=== PATIENT | female | born 1955 | race Caucasian/White ===

== ENCOUNTER 2017-07-12 10:22 | Emergency (ER) | payer BC | END 2017-07-12 11:30 | disposition home or self-care (01) | LOC: E/R 11:30 | DX: H10.023 Other mucopurulent conjunctivitis, bilateral (principal) | CPT/HCPCS: 99283 ==

== ENCOUNTER 2017-10-19 08:55 | Emergency (ER) | payer BC ==
[2017-10-19] MEDS: ONDANSETRON (ODT) 4 MG TAB ODT (09:45)
[2017-10-19] MEDS: morphine 4 MG/ML VIAL IV (09:45)
[2017-10-19 10:13] LABS: ADD MAN DIFF? NO
[2017-10-19 10:19] LABS: ADD UMIC YES; UR ASCORBIC ACID NEGATIVE (NEGATIVE); UR BILIRUBIN (Dip) NEGATIVE (NEGATIVE); UR BLOOD (Dip) NEGATIVE (NEGATIVE); UR CLARITY CLEAR (CLEAR); UR COLOR YELLOW (YELLOW); UR GLUCOSE (Dip) NEGATIVE (NEGATIVE); UR KETONES (Dip) NEGATIVE (NEGATIVE); UR LEUKOCYTE ESTERASE (Dip) 1+ Leu/ul (NEGATIVE); UR NITRITE (Dip) NEGATIVE (NEGATIVE); UR RBC 1 /HPF (0-5); UR TOTAL PROTEIN (Dip) NEGATIVE (NEGATIVE); UR UROBILINOGEN (Dip) NEGATIVE (NEGATIVE); UR WBC 0 /HPF (0-5)
[2017-10-19 10:34] LABS: ALANINE AMINOTRANSFERASE 37 IU/L (13-69); ALBUMIN 3.7 g/dl (3.3-4.9); ALBUMIN/GLOBULIN RATIO 1.08; ALKALINE PHOSPHATASE 71 IU/L (42-121); ANION GAP 12 (8-16); ASPARTATE AMINO TRANSFERASE 24 IU/L (15-46); BILIRUBIN,INDIRECT 0.2 mg/dl (0-1.1); BILIRUBIN,TOTAL 0.2 mg/dl (0.2-1.3); BLOOD UREA NITROGEN 18 mg/dl (7-20); CARBON DIOXIDE 27 mmol/L (21-31); CHLORIDE 110 mmol/L (97-110); CREATININE 0.62 mg/dl (0.44-1.00); GLUCOSE 101 mg/dl (70-220); LIPASE 108 U/L (23-300); POTASSIUM 4.6 mmol/L (3.5-5.1); SODIUM 144 mmol/L (135-144); TOTAL PROTEIN 7.1 g/dl (6.1-8.1)
[2017-10-19 10:51] LABS: TROPONIN-I < 0.012 ng/ml (0.000-0.120)
[2017-10-19 11:25] LABS: WHITE BLOOD COUNT 9.1 10^3/ul (4.8-10.8)
[2017-10-19 11:25] LABS: BASOPHILS % 0.3 % (0.0-2.0); EOSINOPHILS # 0.2 10^3/ul (0.0-0.5); EOSINOPHILS % 2.6 % (0.0-7.0); HEMATOCRIT 36.5 % (37.0-47.0); LYMPHOCYTES # 2.2 10^3/ul (0.8-2.9); LYMPHOCYTES % 24.4 % (15.0-51.0); MEAN CORPUSCULAR HEMOGLOBIN 29.1 pg (29.0-33.0); MEAN CORPUSCULAR HGB CONC 32.9 g/dl (32.0-37.0); MEAN CORPUSCULAR VOLUME 88.4 fl (82.0-101.0); MEAN PLATELET VOLUME 10.6 fl (7.4-10.4); MONOCYTE # 0.7 10^3/ul (0.3-0.9); MONOCYTES % 7.4 % (0.0-11.0); NEUTROPHIL # 5.9 10^3/ul (1.6-7.5); NEUTROPHILS % 65.1 % (39.0-77.0); PLATELET COUNT 255 10^3/UL (140-415); RED BLOOD COUNT 4.13 10^6/ul (4.20-5.40); RED CELL DISTRIBUTION WIDTH 12.9 % (11.5-14.5)
== END 2017-10-19 13:08 | disposition home or self-care (01) ==
LOC: E/R 08:55
DX: R10.32 Left lower quadrant pain (principal); I10 Essential (primary) hypertension; E11.9 Type 2 diabetes mellitus without complications; Z79.82 Long term (current) use of aspirin; Z79.84 Long term (current) use of oral hypoglycemic drugs
CPT/HCPCS: 36415; 74176; 80053; 81001; 83690; 84484; 85025; 93005; 96374; 99285-25

== ENCOUNTER 2018-06-06 11:44 | Inpatient (IN) | payer OTHER, BC ==
[2018-06-06 12:21] LABS: URINE BLOOD (Dip) POC Negative (NEGATIVE); URINE GLUCOSE (Dip) POC Negative (NEGATIVE); URINE KETONES (Dip) POC Negative (NEGATIVE); URINE LEUKOCYTE EST (Dip) POC Negative (NEGATIVE); URINE NITRITE (Dip) POC Negative (NEGATIVE); URINE TOTAL PROTEIN POC Negative (NEGATIVE)
[2018-06-06 12:21] LABS: URINE PH (Dip) POC 6.5 (5.0-8.5)
[2018-06-06 12:24] LABS: ADD MAN DIFF? NO
[2018-06-06 12:30] LABS: BASOPHILS % 0.4 % (0.0-2.0); EOSINOPHILS # 0.2 10^3/ul (0.0-0.5); EOSINOPHILS % 2.7 % (0.0-7.0); HEMATOCRIT 36.8 % (37.0-47.0); HEMOGLOBIN 12.2 g/dl (12.0-16.0); LYMPHOCYTES # 1.8 10^3/ul (0.8-2.9); LYMPHOCYTES % 25.6 % (15.0-51.0); MEAN CORPUSCULAR HEMOGLOBIN 28.6 pg (29.0-33.0); MEAN CORPUSCULAR HGB CONC 33.2 g/dl (32.0-37.0); MEAN CORPUSCULAR VOLUME 86.4 fl (82.0-101.0); MEAN PLATELET VOLUME 10.6 fl (7.4-10.4); MONOCYTE # 0.7 10^3/ul (0.3-0.9); MONOCYTES % 10.2 % (0.0-11.0); NEUTROPHIL # 4.2 10^3/ul (1.6-7.5); PLATELET COUNT 251 10^3/UL (140-415); RED BLOOD COUNT 4.26 10^6/ul (4.20-5.40); RED CELL DISTRIBUTION WIDTH 13.3 % (11.5-14.5)
[2018-06-06 12:30] LABS: WHITE BLOOD COUNT 6.9 10^3/ul (4.8-10.8)
[2018-06-06 12:50] LABS: ALANINE AMINOTRANSFERASE 735 IU/L (13-69); ALBUMIN 4.1 g/dl (3.3-4.9); ALKALINE PHOSPHATASE 99 IU/L (42-121); ANION GAP 7 (5-13); ASPARTATE AMINO TRANSFERASE 613 IU/L (15-46); BILIRUBIN,INDIRECT 0.4 mg/dl (0-1.1); BILIRUBIN,TOTAL 0.4 mg/dl (0.2-1.3); BLOOD UREA NITROGEN 14 mg/dl (7-20); CALCIUM 9.5 mg/dl (8.4-10.2); CARBON DIOXIDE 25 mmol/L (21-31); CHLORIDE 110 mmol/L (97-110); CREATININE 0.59 mg/dl (0.44-1.00); Estimated GFR > 60 mL/min (>60); GLUCOSE 94 mg/dl (70-220); POTASSIUM 4.7 mmol/L (3.5-5.1); SODIUM 142 mmol/L (135-144); TOTAL PROTEIN 7.5 g/dl (6.1-8.1)
[2018-06-06 13:01] LABS: TROPONIN-I < 0.012 ng/ml (0.000-0.120)
[2018-06-06 13:10] LABS: LIPASE 3013 U/L (23-300)
[2018-06-06] MEDS ORDERED: ONDANSETRON 4 MG INJ IV (15:00)
[2018-06-06] MEDS ORDERED: NACL 0.9% 3 ML SYG IV (15:00)
[2018-06-06] MEDS: DEXTROSE 5%-0.45% NACL 1,000 ML IV (16:53)
[2018-06-06] MEDS: HEPARIN 5,000 UNIT/1 ML VIAL SC ×2 (17:00→22:20)
[2018-06-06] MEDS: INSULIN ASPART [NOVOLOG] 3 ML PEN SC ×2 (17:42→21:00)
[2018-06-06] MEDS ORDERED: GLUCOSE GEL 15 GRAM TUBE BUCCAL (18:00)
[2018-06-06] MEDS ORDERED: GLUCAGON 1 MG INJ IM (18:00)
[2018-06-06] MEDS ORDERED: GLUCOSE GEL 15 GRAM TUBE PO ×2 (18:00)
[2018-06-06] MEDS ORDERED: DEXTROSE 50% 50 ML SYRINGE IV ×2 (18:00)
[2018-06-06 18:33] LABS: CREATINE KINASE 119 IU/L (23-200)
[2018-06-06 18:45] LABS: CK INDEX 2.4; CK-MB 2.88 ng/ml (0.0-2.4); TROPONIN-I < 0.012 ng/ml (0.000-0.120)
[2018-06-06] MEDS: HYDROmorphONE 0.5 MG/0.5 ML SYG IV (21:24)
[2018-06-06] MEDS: FAMOTIDINE 20 MG INJ IV (21:24)
[2018-06-07 01:05] LABS: HAAIG REFLEX REFLEX FILED
[2018-06-07 01:32] LABS: CREATINE KINASE 106 IU/L (23-200)
[2018-06-07 01:44] LABS: CK INDEX 2.3; CK-MB 2.47 ng/ml (0.0-2.4); TROPONIN-I < 0.012 ng/ml (0.000-0.120)
[2018-06-07] MEDS: ACCU-CHEK XX (02:00)
[2018-06-07 02:04] LABS: HEPATITIS B SURFACE ANTIGEN NEGATIVE (NEGATIVE)
[2018-06-07 02:22] LABS: HEPATITIS B CORE ANTIBODY REACTIVE (NEGATIVE); HEPATITIS C VIRAL ANTIBODY NEGATIVE (NEGATIVE)
[2018-06-07 05:14] LABS: ADD MAN DIFF? NO
[2018-06-07 05:17] LABS: BASOPHILS % 0.6 % (0.0-2.0); EOSINOPHILS # 0.3 10^3/ul (0.0-0.5); EOSINOPHILS % 6.5 % (0.0-7.0); HEMATOCRIT 35.9 % (37.0-47.0); HEMOGLOBIN 11.5 g/dl (12.0-16.0); LYMPHOCYTES # 1.9 10^3/ul (0.8-2.9); LYMPHOCYTES % 37.6 % (15.0-51.0); MEAN CORPUSCULAR HEMOGLOBIN 28.5 pg (29.0-33.0); MEAN CORPUSCULAR VOLUME 88.9 fl (82.0-101.0); MONOCYTE # 0.5 10^3/ul (0.3-0.9); MONOCYTES % 9.4 % (0.0-11.0); NEUTROPHIL # 2.3 10^3/ul (1.6-7.5); NEUTROPHILS % 45.7 % (39.0-77.0); PLATELET COUNT 230 10^3/UL (140-415); RED BLOOD COUNT 4.04 10^6/ul (4.20-5.40); RED CELL DISTRIBUTION WIDTH 13.5 % (11.5-14.5)
[2018-06-07 05:17] LABS: WHITE BLOOD COUNT 5.1 10^3/ul (4.8-10.8)
[2018-06-07 05:30] LABS: HEMOGLOBIN A1C 5.7 % (0-5.9)
[2018-06-07 05:52] LABS: ALANINE AMINOTRANSFERASE 473 IU/L (13-69); ALBUMIN 3.6 g/dl (3.3-4.9); ALBUMIN/GLOBULIN RATIO 1.09; ALKALINE PHOSPHATASE 83 IU/L (42-121); ANION GAP 5 (5-13); ASPARTATE AMINO TRANSFERASE 235 IU/L (15-46); BILIRUBIN,INDIRECT 0.4 mg/dl (0-1.1); BILIRUBIN,TOTAL 0.4 mg/dl (0.2-1.3); BLOOD UREA NITROGEN 12 mg/dl (7-20); CALCIUM 8.9 mg/dl (8.4-10.2); CARBON DIOXIDE 27 mmol/L (21-31); CHLORIDE 108 mmol/L (97-110); CREATININE 0.59 mg/dl (0.44-1.00); Estimated GFR > 60 mL/min (>60); GLUCOSE 102 mg/dl (70-220); SODIUM 140 mmol/L (135-144); TOTAL PROTEIN 6.9 g/dl (6.1-8.1)
[2018-06-07] MEDS: DEXTROSE 5%-0.45% NACL 1,000 ML IV ×2 (05:54→10:57)
[2018-06-07] MEDS: HEPARIN 5,000 UNIT/1 ML VIAL SC ×2 (05:56→14:00)
[2018-06-07] MEDS: INSULIN ASPART [NOVOLOG] 3 ML PEN SC (08:47)
[2018-06-07] MEDS: FAMOTIDINE 20 MG INJ IV (08:47)
[2018-06-07 10:01] LABS: CHOLESTEROL 185 mg/dl (100-200)
[2018-06-07 10:01] LABS: CHOL/HDL RATIO 3.2 RATIO; HDL CHOLESTEROL 57 mg/dl (35-98); LDL CHOLESTEROL,CALCULATED 102 mg/dl; TRIGLYCERIDES 130 mg/dl (0-149)
[2018-06-07] MEDS: HYDROmorphONE 0.5 MG/0.5 ML SYG IV (11:47)
[2018-06-07 13:20] LABS: LIPASE 209 U/L (23-300)
[2018-06-07 13:26] LABS: CARCINOEMBRYONIC ANTIGEN 2.1 ng/ml (0.0-5.0)
[2018-06-07 13:30] LABS: CANCER ANTIGEN 19-9 28.7 U/ml (0.0-37.0)
[2018-06-07] MEDS ORDERED: ACETAMINOPHEN 500 MG TAB PO (14:00)
== END 2018-06-07 18:40 | disposition home or self-care (01) | DRG 440 ==
LOC: E/R 11:44 → PP2 15:08
DX: K85.10 Biliary acute pancreatitis without necrosis or infection (principal); E11.9 Type 2 diabetes mellitus without complications; Z79.4 Long term (current) use of insulin; E66.9 Obesity, unspecified; I10 Essential (primary) hypertension; E78.5 Hyperlipidemia, unspecified
CPT/HCPCS: 36415; 71045; 74181; 76705; 78226; 80053; 80061; 81003; 82378; 82550; 82553; 82962; 83036; 83690; 83735; 84484; 85025; 86301; 86704; 86709; 86803; 87340; 93005; 99285-25